=== PATIENT | female | born 1960 | race Caucasian/White ===

== ENCOUNTER 2017-11-04 10:32 | Inpatient (IN) | payer OTHER ==
[~2017-11-04] VITALS: Ht 162.6 cm; Wt 81.0 kg
[2017-11-04 12:14] LABS: PLATELET COUNT 197 x10^3mcL (130-400); RED CELL DISTRIBUTION WIDTH 12.8 % (11.5-14.5)
[2017-11-04 12:19] LABS: CALCIUM 9.2 mg/dL (8.5-10.1); CARBON DIOXIDE 28.1 mmol/L (21-32); CHLORIDE SERUM 106 mmol/L (98-107); CREATININE SERUM 0.8 mg/dL (0.6-1.0); GFR1 > 60 mL/min; GLUCOSE SERUM 93 mg/dL (74-106); POTASSIUM SERUM 4.2 mmol/L (3.5-5.1); SODIUM SERUM 142 mmol/L (136-145)
[2017-11-04 12:34] LABS: ALBUMIN 3.7 g/dL (3.4-5.0); ALKALINE PHOSPHATASE 43 U/L (46-116); ALT/SGPT 41 U/L (14-59); AST/SGOT 37 U/L (15-37); BILIRUBIN TOTAL 0.47 mg/dL (0.20-1.00); TOTAL PROTEIN, SERUM 7.4 g/dL (6.4-8.2)
[2017-11-04] MEDS ORDERED: ABILIFY5 M1 PO (14:55)
[2017-11-04] MEDS ORDERED: GOOD SENSE ASPI81 M3 PO (14:56)
[2017-11-04] MEDS ORDERED: METFORMIN HYDR500 M1 PO (14:56)
[2017-11-04] MEDS ORDERED: VITAMIN D32000 I2 PO (14:56)
[2017-11-04] MEDS ORDERED: PROPRANOLOL HCL10 MG PO (14:56)
[2017-11-04] MEDS ORDERED: FENOFIBRATE160 M1 PO (14:56)
[2017-11-04] MEDS ORDERED: VASCEPA1 GM (14:57)
[2017-11-04] MEDS ORDERED: OYSCO 500500 M1 PO (14:57)
[2017-11-04] MEDS ORDERED: WELCHOL3.75 GM/P1 PO (14:57)
[2017-11-04 15:26] VITALS: BP 143/82
[2017-11-04 15:53] LABS: MAGNESIUM 1.7 mg/dL (1.8-2.4)
[2017-11-04 15:59] LABS: CHOLESTEROL/HDL RATIO 2.1
[2017-11-04 16:42] LABS: AMPHETAMINE QUAL UR NONE DETECTED (NEG <=1000)
[2017-11-04 17:47] VITALS: BP 169/89
[2017-11-04 19:47] LABS: microscopic required? NO
[2017-11-04 20:02] LABS: UA SPECIFIC GRAVITY 1.015 (1.005-1.035); urine erythrocyte NEGATIVE (NEGATIVE)
[2017-11-04 21:14] VITALS: BP 138/77
[2017-11-05 06:01] VITALS: BP 129/78
[2017-11-05 06:43] LABS: BASOPHIL % 0.5 % (0-2); PLATELET COUNT 195 x10^3mcL (130-400); RED CELL DISTRIBUTION WIDTH 13.6 % (11.5-14.5)
[2017-11-05 06:46] LABS: CALCIUM 8.9 mg/dL (8.5-10.1); CARBON DIOXIDE 28.3 mmol/L (21-32); CHLORIDE SERUM 106 mmol/L (98-107); CREATININE SERUM 0.8 mg/dL (0.6-1.0); GFR1 > 60 mL/min; GLUCOSE SERUM 86 mg/dL (74-106); MAGNESIUM 1.8 mg/dL (1.8-2.4); PHOSPHOROUS 4.7 mg/dL (2.5-4.9); POTASSIUM SERUM 3.8 mmol/L (3.5-5.1); SODIUM SERUM 141 mmol/L (136-145)
[2017-11-05 09:56] VITALS: BP 146/77
[2017-11-05 11:06] VITALS: Ht 162.6 cm; Wt 81.0 kg
[2017-11-05 12:59] VITALS: BP 169/95
[2017-11-05 17:00] VITALS: BP 163/88
[2017-11-05 21:15] VITALS: BP 147/99
[2017-11-06 06:49] VITALS: BP 143/90
[2017-11-06 07:08] LABS: BASOPHIL % 0.5 % (0-2); PLATELET COUNT 224 x10^3mcL (130-400); RED CELL DISTRIBUTION WIDTH 13.8 % (11.5-14.5)
[2017-11-06 07:13] LABS: CALCIUM 9.5 mg/dL (8.5-10.1); CARBON DIOXIDE 28.6 mmol/L (21-32); CHLORIDE SERUM 106 mmol/L (98-107); CREATININE SERUM 0.8 mg/dL (0.6-1.0); GFR1 > 60 mL/min; GLUCOSE SERUM 84 mg/dL (74-106); POTASSIUM SERUM 3.6 mmol/L (3.5-5.1); SODIUM SERUM 143 mmol/L (136-145)
[2017-11-06 09:29] VITALS: BP 168/101
[2017-11-06] MEDS ORDERED: HYDROCHLOROTH12.5 M2 PO ×2 (10:24→11:04)
[2017-11-06 11:26] VITALS: BP 146/88
[2017-11-06 12:03] VITALS: BP 143/83; BP 146/88
[2017-11-06 12:26] VITALS: BP 165/86
[2017-11-06 13:45] VITALS: BP 143/83
== END 2017-11-06 14:24 | DRG 640 ==
LOC: ED 10:32 → DU 14:17
PROVIDERS: Emergency Medicine; Family Medicine
DX: E86.0 Dehydration (principal); G93.41 Metabolic encephalopathy; D68.69 Other thrombophilia; E11.59 Type 2 diabetes mellitus with other circulatory complications; E83.42 Hypomagnesemia; I10 Essential (primary) hypertension; E78.5 Hyperlipidemia, unspecified; F79 Unspecified intellectual disabilities; Z79.84 Long term (current) use of oral hypoglycemic drugs; Z68.30 Body mass index [BMI] 30.0-30.9, adult
CPT/HCPCS: 83880; Q0092

== ENCOUNTER 2019-02-14 09:53 | Emergency (ER) | payer OTHER ==
[~2019-02-14] VITALS: Ht 165.1 cm; Wt 82.1 kg
[~2019-02-14 09:53] MED LIST: ABILIFY5 M1 PO; FENOFIBRATE160 M1 PO; GOOD SENSE ASPI81 M3 PO; HYDROCHLOROTH12.5 M2 PO; METFORMIN HYDR500 M1 PO; OYSCO 500500 M1 PO; PROPRANOLOL HCL10 MG PO; VASCEPA1 GM; VITAMIN D32000 I2 PO; WELCHOL3.75 GM/P1 PO
[2019-02-14 12:00] LABS: BASOPHIL % 0.7 % (0-2); PLATELET COUNT 212 x10^3mcL (130-400)
[2019-02-14 12:17] LABS: CALCIUM 9.5 mg/dL (8.5-10.1); CARBON DIOXIDE 32.5 mmol/L (21-32); CHLORIDE SERUM 103 mmol/L (98-107); CREATININE SERUM 0.9 mg/dL (0.6-1.0); GFR1 > 60 mL/min; GLUCOSE SERUM 74 mg/dL (74-106); POTASSIUM SERUM 3.7 mmol/L (3.5-5.1); SODIUM SERUM 138 mmol/L (136-145)
[2019-02-14 12:21] LABS: ALBUMIN 3.7 g/dL (3.4-5.0); ALKALINE PHOSPHATASE 36 U/L (46-116); ALT/SGPT 18 U/L (14-59); AST/SGOT 17 U/L (15-37); BILIRUBIN TOTAL 0.43 mg/dL (0.20-1.00); TOTAL PROTEIN, SERUM 7.2 g/dL (6.4-8.2)
[2019-02-14 12:29] LABS: FREE T4 1.34 ng/dL (0.76-1.46); FREE THYROXINE INDEX 4.1 ug/dL (1.4-4.5); T4(THYROXINE) 11.2 ug/dL (4.7-13.3)
[2019-02-14 12:44] LABS: T3 TOTAL 1.07 ng/mL
[2019-02-14 14:30] VITALS: BP 118/67
== END 2019-02-14 14:30 | disposition home or self-care (01) ==
LOC: ED 09:53
PROVIDERS: Emergency Medicine
DX: F91.1 Conduct disorder, childhood-onset type (principal); G47.00 Insomnia, unspecified; I10 Essential (primary) hypertension; E11.9 Type 2 diabetes mellitus without complications; F41.9 Anxiety disorder, unspecified; F32.9 Major depressive disorder, single episode, unspecified; G20 Parkinson's disease
CPT/HCPCS: 36415; 84439